=== PATIENT | female | born 1985 | race Caucasian/White ===

== ENCOUNTER 2018-09-12 08:51 | Inpatient (IN) | payer OTHER ==
[2018-10-22] MEDS ORDERED: DINOPROSTONE 10 MG VAGINAL INSERT.SR PV PRN (19:42)
[2018-10-22] MEDS ORDERED: RINGERS SOLUTION,LACTATED 300 ML IV ONE (19:42)
[2018-10-22] MEDS ORDERED: ACETAMINOPHEN 325 MG TABLET PO PRN (19:42)
[2018-10-22] MEDS ORDERED: MAG HYDROX/AL HYDROX/SIMETH SUSP 30 ML UDCUP PO PRN (19:42)
[2018-10-22] MEDS ORDERED: DINOPROSTONE 10 MG VAGINAL INSERT.SR PV ONE (19:44)
[2018-10-22] MEDS ORDERED: DINOPROSTONE 10 MG VAGINAL INSERT.SR ONE (20:07)
[2018-10-22 20:32] LABS: ABSOLUTE LYMPHOCYTES (AUTO) 2.1 10^3/uL (0.5-4.7); ABSOLUTE MONOCYTES (AUTO) 0.4 10^3/uL (0.1-1.4); BASOPHILS % (AUTO) 0.2 % (0-2); EOSINOPHILS % (AUTO) 0.5 % (0-6); HEMATOCRIT 33.4 % (36.0-47.0); HEMOGLOBIN 11.3 g/dL (12.0-15.5); LYMPHOCYTES % (AUTO) 24.6 % (13-45); MEAN CORPUSCULAR HEMOGLOBIN 26.5 pg (27.0-33.4); MEAN CORPUSCULAR VOLUME 78 fl (80-97); MONOCYTES % (AUTO) 5.1 % (3-13); PLATELET COUNT 249 10^3/uL (150-450); RED BLOOD COUNT 4.28 10^6/uL (3.72-5.28); RED CELL DISTRIBUTION WIDTH 15.3 % (11.5-14.0); SEGMENTED NEUTROPHILS % (AUTO) 69.6 % (42-78); TOTAL CELLS COUNTED % (AUTO) 100 %; WHITE BLOOD COUNT 8.7 10^3/uL (4.0-10.5)
[2018-10-22 20:33] LABS: APPEARANCE,URINE SLIGHTLY-CLOUDY; BILIRUBIN,URINE NEGATIVE (NEGATIVE); COLOR,URINE YELLOW; GLUCOSE, URINE NEGATIVE (NEGATIVE); KETONES,URINE NEGATIVE (NEGATIVE); LEUKOCYTE ESTERASE,URINE NEGATIVE (NEGATIVE); NITRITE,URINE NEGATIVE (NEGATIVE); PROTEIN,URINE NEGATIVE (NEGATIVE)
[2018-10-22 20:54] LABS: URINE AMPHETAMINES SCREEN NEGATIVE; URINE BARBITURATES SCREEN NEGATIVE; URINE BENZODIAZEPINES SCREEN NEGATIVE; URINE COCAINE SCREEN NEGATIVE; URINE MARIJUANA (THC) SCREEN NEGATIVE; URINE METHADONE SCREEN NEGATIVE; URINE PHENCYCLIDINE SCREEN NEGATIVE
--- NOTE | 2018-10-22 22:03 | Admission Physical ---
Datetime Report Generated by CPN: 10/22/2018 22:03 CURRENT ADMISSION Chief Complaint: Other Chief Complaint Other: chtn Indication for Induction: Chronic Primary/Essential HTN Admit Impression : Term, Intrauterine ; Induction of Labor Admit Plan: Admit to Unit ALLERGIES Medication Allergies: No Medication Allergies: No Known Allergies (10/22/2018) Latex: Unknown OBSTETRICAL HISTORY EDC: 10/28/2018 00:00 : 1 Para: 0 Term: 0 : 0 SAB: 0 IAB: 0 Ectopic: 0 Livin Cesareans: 0 VBACs: 0 Multiple Births: 0 Gestational Diabetes: No Rh Sensitization: No Incompetent Cervix: No BAILEY: No Infertility: No ART Treatment: No Uterine Anomaly: No IUGR: No Hx Previous C/S: No Macrosomia: No Hx Loss/Stillborn: No PIH: No Hx : No Placenta Previa/Abruption: No Depression/PP Depression: No PTL/PROM: No Post Hemorrhage: No Obstetrical History Comments: G1- current, induction for chronic HTN SEE RECORDS Alcohol: No Marijuana : No Cocaine: No Other Illicit Drugs: No Cigarettes: Never Smoker. [id number] MEDICAL HISTORY Diabetes: No Blood Transfusion: No Pulmonary Disease (Asthma, TB): No Breast Disease: No Hypertension: Yes Chief Solution Architect Surgery: No Heart Disease: No Hosp/Surgery: Yes Autoimmune Disorder: No Anesthetic Complications: No Kidney Disease: No Abnormal Pap Smear: No Neuro/Epilepsy: No Psychiatric Disorders: No Other Medical Diseases: No Hepatitis/Liver Disease: No Significant Family History: No Varicosities/Phlebitis: No Trauma/Violence : No Thyroid Dysfunction: No Medical History Comments: anxiety, sleeve surgery in 2017 INFECTIOUS HISTORY Gonorrhea: No Genital Herpes: No Chlamydia: No Tuberculosis: No Syphilis: No Hepatitis: No HIV/AIDS Exposure: No Rash or Viral Illness: No HPV: No PHYSICAL EXAM General: Normal HEENT: Normal Neurologic: Normal Thyroid: Normal Heart: Normal Lungs: Normal Breast: Deferred Back: Normal Abdomen: Normal Genitourinary Exam: Normal Extremities: Normal DTRs: Normal Pelvic Type: Adequate Vital Signs: Reviewed VAGINAL EXAM Effacement: 75 Station: -2 MEMBRANES Pooling: Negative Membranes: Intact FETUS A EGA: 39.1 Monitoring: External US FHR- Baseline: 120 Variability: Moderate 6-25bpm Decelerations: None Presentation: Vertex Admit Comment: efw 8-9 lbs PLANS FOR LABOR AND DELIVERY Labor and Delivery: Plan Pain Management: Epidural Feeding Preference: Breast Benefit of Breast Feed Discussed: Yes Circumcision: Yes INFORMED CONSENT Signature: with User ID: [email or web address]
[2018-10-22] MEDS ORDERED: ZOLPIDEM TARTRATE 5 MG TABLET ONE (22:39)
[2018-10-22] MEDS: ZOLPIDEM TARTRATE 5 MG TABLET PO SCH (22:40)
[2018-10-22] MEDS ORDERED: ZOLPIDEM TARTRATE 5 MG TABLET PO ONE (23:30)
[2018-10-23] MEDS ORDERED: OXYTOCIN 10 UNIT/ML VIAL ONE (04:49)
[2018-10-23] MEDS ORDERED: MISOPROSTOL 0.2 MG TABLET ONE ×2 (04:50→09:10)
[2018-10-23] MEDS ORDERED: LIDOCAINE 1% INJ-PF (10 MG/ML) 30 ML SDV ONE ×2 (04:50→09:10)
[2018-10-23] MEDS ORDERED: OXYTOCIN/NORMAL SALINE 20 UNIT/1,000 ML RTUINJ ONE (04:50)
[2018-10-23] MEDS ORDERED: OXYTOCIN/NORMAL SALINE 20 UNIT/1,000 ML RTUINJ IV PRN ×2 (05:00→06:00)
[2018-10-23] MEDS: RINGERS SOLUTION,LACTATED 1,000 ML IV PRN ×4 (09:20→16:04)
[2018-10-23] MEDS ORDERED: EPHEDRINE SULFATE INJ 50 MG/1 ML AMPULE ONE (09:37)
[2018-10-23] MEDS ORDERED: BUPIVACAINE HCL 0.25 % INJ/PF (2.5 MG/1 ML) 30 ML VIAL ONE (09:37)
[2018-10-23] MEDS ORDERED: FENTANYL/BUPIVACAINE/NS/PF 300 MCG/150 ML RTUINJ EPI ONE (09:37)
--- NOTE | 2018-10-23 10:38 | L&D Progress Notes ---
PROGRESS NOTES Datetime Report Generated by CPN: 10/23/2018 10:38 PROGRESS NOTE Impression: Reassuring Heart Rate; Rupture of Membranes Plan: Continue Present Management; Induction Vital Signs : Reviewed; Within Normal Limits Comment: IOL due to CHTN. Pt on Pitocin, rec'd report from SHIRA Burch that SROM had occured. VE /-1. Pt planning an epidural, GBS negative. Plan to continue w/ Pitocin and pt may have an epidural when she desires VAGINAL EXAM Effacement: 75 Station: -2 Contractions: q1-2 LAST VAGINAL EXAM-NURSING Dilitation: 3.0 Dilitation: 3.0 Effacement: 75 Effacement: 75 Station: -2 Station: -2 Contractions: no ctx detected MEMBRANES Pooling: Negative Membranes: Ruptured Membranes: Intact Amniotic Fluid Color: Clear FETUS A FHR - Baseline: 140 Monitoring: External US Variability: Moderate 6-25bpm Accelerations: 15X15 Decelerations: None : 39.0 Presentation: Vertex SIGNATURE SIGNATURE: [id number];[id number] SIGNATURE: [id number] Assignment: Aurora Calvin MD Signature: with User ID: [place] : with User ID: [email or web address]
--- NOTE | 2018-10-23 12:47 | L&D Progress Notes ---
PROGRESS NOTES Datetime Report Generated by CPN: 10/23/2018 12:47 PROGRESS NOTE Impression: Reassuring Heart Rate Procedures: Sterile Vag Exam Plan: Continue Present Management; Induction; Anticipate Vaginal Delivery Vital Signs : Reviewed; Within Normal Limits Comment: s/p Epidural. pt is comfortable. Variable decels which did resolve with position change. VE 4/100/-2. Pitocin reduced to 2 mu/min. Position changes encouraged. VAGINAL EXAM Dilatation: 4 Effacement: 100 Station: -2 Dilitation: 4.0 Effacement: 90 Station: -2 MEMBRANES Membranes: Ruptured FETUS A FHR - Baseline: 150 Monitoring: External US Variability: Moderate 6-25bpm Accelerations: 10X10 Decelerations: Variable FETUS C SIGNATURE: [id number];[id number] Assignment: Aurora Calvin MD Signature: with User ID: [email or web address] : with User ID: [email or web address]
--- NOTE | 2018-10-23 15:24 | L&D Progress Notes ---
PROGRESS NOTES Datetime Report Generated by CPN: 10/23/2018 15:24 PROGRESS NOTE Impression: Reassuring Heart Rate Procedures: Sterile Vag Exam Plan: Continue Present Management; Induction; Anticipate Vaginal Delivery Vital Signs : Reviewed; Within Normal Limits Comment: Pt remains comfortable, feeling some rectal pressure. +bloody show. VE Rim/100/ -1. Position changes encourged, Anticipate VAGINAL EXAM Dilatation: 9 Effacement: 100 Station: -1 Contractions: 2 Dilitation: 9.0 Effacement: 100 Station: -1 FETUS A FHR - Baseline: 125 Monitoring: External US Variability: Moderate 6-25bpm Accelerations: 15X15 Decelerations: Early FETUS C SIGNATURE: [id number];[id number] Assignment: Aurora Calvin MD Signature: with User ID: [place] : with User ID: [email or web address]
[2018-10-23] MEDS ORDERED: DIBUCAINE 1% OINTMENT 28 GM TP PRN (17:05)
[2018-10-23] MEDS ORDERED: OXYTOCIN/NORMAL SALINE 1,000 ML IV PRN (17:05)
[2018-10-23] MEDS ORDERED: MEASLES,MUMPS&RUBELLA VACC/PF 0.5 ML VIAL SUBCUT PRN (17:05)
[2018-10-23] MEDS ORDERED: BENZOCAINE/MENTHOL AEROSOL SPRAY 56 ML TOP PRN (17:05)
[2018-10-23] MEDS ORDERED: DIPH/PERTUSS(ACELL)/TETANUS VAC/PF 0.5 ML SYR (>=10YO) IM PRN (17:05)
--- NOTE | 2018-10-23 17:43 | Warning Signs in Babies ---
VOD Warning Signs Datetime Report Generated by [facility]: 10/23/2018 17:43 VOD#608 -Warning Signs in Babies: Viewed with Parent(s)/Family (10/22/2018 19:19:Marcin Bright RN)
--- NOTE | 2018-10-23 18:15 | Delivery Summary ---
Del Sum A-C Datetime Report Generated by CPN: 10/23/2018 18:15 DELIVERY PERSONNEL DELIVERY PERSONNEL: [id number] Delivery Doctor:: Janie Keita CNM Labor and Delivery Nurse:: Marcin Bright RNinpatient pharmacist Nurse:: SUSAN Lala [employer] Taxonomist/BUILDING CONSTRUCTION FOREMAN: Johanna Calixto Additional Personnel: : SHIRA Granda Resident MATERNAL INFORMATION Delivery Anesthesia: Epidural Medications After Delivery: Pitocin Drip 20 Units/1000ml NSS Maternal Complications: None Provider Comments: of viable male . ANA PAULA position, delivered in stable condition, placed on pts abdoman. bulb suctioned. Delayed cord clamping occured after 90 seconds. Cord blood obtained. Placenta S/C/I, ff w/ decreased lochia rubra. IV Pitocin infusing. QBL 100 ml. Pt and infant left in stable condition, pt plans to breast feed. Attending MD is Dr Munroe. LABOR SUMMARY EDC: 10/28/2018 00:00 No. Babies in Womb: 1 Attempted: No Labor Anesthesia: Epidural LABOR INFORMATION Reason for Induction: Chronic Primary/Essential HTN Onset of Labor: 10/23/2018 12:42 Complete Dilatation: 10/23/2018 16:16 Oxytocin: Induction Group B Beta Strep: negative Steroids Given: None Reason Steroids Not Administered: Not Applicable MEMBRANES Membranes Rupture Method: Spontaneous Rupture of Membranes: 10/23/2018 09:00 Length of Rupture (hr): 7.63 Amniotic Fluid Color: Clear Amniotic Fluid Amount: Small Amniotic Fluid Odor: Normal STAGES OF LABOR Stage 1 hr: 3 Stage 1 min: 34 Stage 2 hr: 0 Stage 2 min: 22 Stage 3 hr: 0 Stage 3 min: 4 Total Time in Labor hr: 4 Total Time in Labor min: 0 VAGINAL DELIVERY Episiotomy: None Laceration #1: Vaginal Laceration Extension #1: First Degree Laceration Repair Note: left first degree laceration on labia majora and left side wall repaired with 2.0 vicryl. Sponge Count Correct: N/A CSECTION DELIVERY Primary Indication: N/A Secondary Indication: N/A CSection Incidence: N/A Labor: N/A Elective: N/A CSection Incision: N/A BABY A INFORMATION Infant Delivery Date/Time: 10/23/2018 16:38 Method of Delivery: Vaginal Born in Route : No : N/A Forceps: N/A Vacuum Extraction: N/A Shoulder Dystocia : No PRESENTATION/POSITION BABY A Presentation: Cephalic Cephalic Presentation: Vertex Vertex Position: Left Occipital Transverse Breech Presentation: N/A PLACENTA INFORMATION BABY A Placenta Delivery Time : 10/23/2018 16:42 Placenta Method of Delivery: Spontaneous Placenta Status: Delivered SCORES BABY A Heart Rate 1 min: >100 bpm Resp Effort 1 min: Good Cry Reflex Irritability 1 min: Cough or Sneeze or Pulls Away Muscle Tone 1 min: Active Motion Color 1 min: Body [place], Extremities Blue Resuscitation Effort 1 min: Tactile Stimulation SCORE 1 MIN: 9 Heart Rate 5 min: >100 bpm Resp Effort 5 min: Good Cry Reflex Irritability 5 min: Cough or Sneeze or Pulls Away Muscle Tone 5 min: Active Motion Color 5 min: Body [place], Extremities Blue Resuscitation Effort 5 min: N/A SCORE 5 MIN: 9 Resuscitation Effort 10 min: N/A INFORMATION BABY A Gestational Age at Delivery: 38.2 Gestational Status: Early Term- 37- 38.6 Weeks Outcome : Liveborn Condition : Stable Sex: Male IDENTIFICATION BABY A Infant Verification Date/Time: 10/23/2018 16:48 ID Band Number: [id number] Mother's Name Verified: Yes RN Verifying : T. Deangelo, RN and A. Blankenberg, RN WEIGHT/LENGTH BABY A Infant Birthweight (gm): 3732 Infant Weight (lb): 8 Infant Weight (oz): 4 Length (in): 20.50 Length (cm): 52.07 CORD INFORMATION BABY A No. Cord Vessels: 3 Nuchal Cord : N/A Cord Blood Taken: Yes-For Storage (Mom's Blood type +) Infant Suction: Mouth ASSESSMENT BABY A Infant Complications: Multiple Variable Decels Physical Findings at Delivery: Caput Succedaneum Respirations: Appears Normal Skin to Skin: Yes Skin to Skin Time (min): 55 Plumbing And Heating Contractor/ALS Called : No Transferred To: Remains with Mother SIGNATURES Assignment: Aurora Calvin MD Signature: with User ID: [place] : with User ID: [email or web address]
[2018-10-23] MEDS: DOCUSATE SODIUM 100 MG CAPSULE PO SCH (20:38)
[2018-10-23] MEDS: FERROUS SULFATE 325 MG TABLET PO SCH (20:39)
[2018-10-23] MEDS: ZOLPIDEM TARTRATE 5 MG TABLET PO SCH (21:42)
[2018-10-23] MEDS: IBUPROFEN 800 MG TABLET PO SCH (21:43)
[2018-10-23] MEDS: ACETAMINOPHEN WITH CODEINE #3 TABLET PO PRN (21:49)
[2018-10-24] MEDS: ACETAMINOPHEN WITH CODEINE #3 TABLET PO PRN ×2 (05:11→13:19)
[2018-10-24] MEDS: IBUPROFEN 800 MG TABLET PO SCH ×3 (06:32→21:29)
[2018-10-24 08:09] LABS: HEMATOCRIT 29.8 % (36.0-47.0); HEMOGLOBIN 9.9 g/dL (12.0-15.5); MEAN CORPUSCULAR HEMOGLOBIN 26.5 pg (27.0-33.4); MEAN CORPUSCULAR HGB CONC 33.3 g/dL (32.0-36.0); MEAN CORPUSCULAR VOLUME 79 fl (80-97); PLATELET COUNT 191 10^3/uL (150-450); RED BLOOD COUNT 3.75 10^6/uL (3.72-5.28); RED CELL DISTRIBUTION WIDTH 15.5 % (11.5-14.0); WHITE BLOOD COUNT 10.7 10^3/uL (4.0-10.5)
[2018-10-24] MEDS: PRENATAL VITAMIN W DHA CAPSULE PO SCH (09:43)
[2018-10-24] MEDS: SENNOSIDES/DOCUSATE 8.6-50 MG 1 EACH TABLET PO SCH (09:43)
[2018-10-24] MEDS: FERROUS SULFATE 325 MG TABLET PO SCH ×2 (09:44→17:35)
[2018-10-24] MEDS: DOCUSATE SODIUM 100 MG CAPSULE PO SCH ×2 (09:44→17:35)
--- NOTE | 2018-10-24 15:16 | PDOC PROGRESS REPORT ---
Subjective-OB Progress Note for:: 10/24/18 Subjective: reports bleeding slowing, pain controlled with current meds. denies needs. Physical Exam (OB) Vital Signs: Temp Pulse Resp BP Pulse Ox 98.8 F 71 16 122/89 H 98 10/24/18 11:21 10/24/18 11:21 10/24/18 11:21 10/24/18 11:21 10/24/18 11:21 Intake & Output 10/23/18 10/24/18 10/25/18 06:59 06:59 06:59 Intake Total 842 Balance 842 Weight 94.2 kg - Abdomen Description: Soft, Round Hernia Present: No Fundal Description: Firm, Midline Fundal Height: u/u - u/2 - Abdominal Distension: No distension Tenderness: Nontender - Extremities Lower extremities: Shanda's sign - neg Calf: Normal, Nontender Objective-Diagnostic Laboratory: 10/24/18 07:34 10/24/18 07:34 WBC 10.7 H RBC 3.75 Hgb 9.9 L Hct 29.8 L MCV 79 L MCH 26.5 L MCHC 33.3 RDW 15.5 H Plt Count 191 Assessment and Plan(PN) - Assessment and Plan (1) Normal vaginal delivery Is this a current diagnosis for this admission?: Yes (2) Obstetrical laceration Is this a current diagnosis for this admission?: Yes - Time Spent with Patient Time with patient: Less than 15 minutes Medications reviewed and adjusted accordingly: Yes - Disposition Anticipated Discharge: Home Within: within 24 hours
[2018-10-24] MEDS: ZOLPIDEM TARTRATE 5 MG TABLET PO SCH (21:28)
[2018-10-25] MEDS: ACETAMINOPHEN WITH CODEINE #3 TABLET PO PRN ×2 (00:14→06:58)
[2018-10-25 09:02] VITALS: BP 129/84
--- NOTE | 2018-10-25 09:23 | PDOC DISCHARGE SUMMARY ---
Final Diagnosis Discharge Date: 10/25/18 - Final Diagnosis (1) Normal vaginal delivery Is this a current diagnosis for this admission?: Yes (2) Obstetrical laceration Is this a current diagnosis for this admission?: Yes Discharge Data - Discharge Medication Home Medications: 95/Iron Fum/Folic/Dha [ + Dha Combo Pack] 1 tab PO DAILY 10/22/18 Acetaminophen [Tylenol 325 mg Tablet] 650 mg PO Q4HP PRN tablet 10/25/18 Procedures: NST Intrapartum Procedure(s): Spontaneous Vaginal Delivery Laceration-Degree: 1st - Diagnosis Test Laboratory: Temp Pulse Resp BP Pulse Ox 98.0 F 81 15 129/84 H 100 10/25/18 07:44 10/25/18 07:44 10/25/18 07:44 10/25/18 07:44 10/25/18 07:44 10/22/18 10/22/18 10/24/18 19:21 20:00 07:34 RBC 4.28 3.75 Hgb 11.3 L 9.9 L Hct 33.4 L 29.8 L Urine Opiates Screen NEGATIVE - Discharge information/Instructions Discharge Activity: Balance Activity w/Rest, Pelvic Rest Discharge Diet: Regular Disposition: HOME, SELF-CARE Follow up with: [facility] in: 1, Weeks - BP check
[2018-10-25] MEDS: IBUPROFEN 800 MG TABLET PO SCH (09:47)
[2018-10-25] MEDS: SENNOSIDES/DOCUSATE 8.6-50 MG 1 EACH TABLET PO SCH (09:50)
[2018-10-25] MEDS: PRENATAL VITAMIN W DHA CAPSULE PO SCH (09:51)
[2018-10-25] MEDS: FERROUS SULFATE 325 MG TABLET PO SCH (09:51)
[2018-10-25] MEDS: DOCUSATE SODIUM 100 MG CAPSULE PO SCH (09:52)
== END 2018-10-25 14:57 | disposition home or self-care (01) | DRG 807 ==
LOC: LR 10-22 19:21 → 2S 10-23 19:45
PROVIDERS: ADMIT Obstetrics & Gynecology; ATTEND Obstetrics & Gynecology
PROC: 10E0XZZ Delivery of Products of Conception, External Approach (ICD-10-PCS; principal; 2018-10-23)
PROC: 0HQ9XZZ Repair Perineum Skin, External Approach (ICD-10-PCS; 2018-10-23)
DX: O10.92 Unspecified pre-existing hypertension complicating childbirth (principal); Z37.0 Single live birth; O70.0 First degree perineal laceration during delivery; O99.844 Bariatric surgery status complicating childbirth; O76 Abnormality in fetal heart rate and rhythm complicating labor and delivery; Z3A.39 39 weeks gestation of pregnancy
CPT/HCPCS: 36415; 80307; 81005; 85025; 85027; 86592; 86850; 86900; 86901; 88307; J2590; J3010; J3490